=== PATIENT | female | born 1990 | race Hispanic/Latino ===

== ENCOUNTER 2025-07-22 16:48 | Emergency (ER) | payer BC ==
[~2025-07-22] VITALS: Ht 165.1 cm; Wt 109.5 kg
[~2025-07-22 16:48] MED LIST: ALBUTEROL2.5 MG/3 M INH; BENZONATATE100 MG PO; COMPRESSOR NEB1 EACH; IBUPROFEN800 MG PO; NAPROSYN500 MG PO; NORCO 5-325 TA1 EACH PO; PROAIR DIGIHAL90 MCG INH; ZITHROMAX250 MG PO; ZOFRAN ODT4 MG SL
[2025-07-22 17:38] VITALS: PULSE 69; RESP 16; TEMP 98.4; O2SAT 100
== END 2025-07-22 17:38 | disposition home or self-care (01) ==
LOC: FSED 17:11
DX: R50.9 Fever, unspecified (principal); J06.9 Acute upper respiratory infection, unspecified; M32.9 Systemic lupus erythematosus, unspecified; M06.9 Rheumatoid arthritis, unspecified; Z11.52 Encounter for screening for COVID-19; Z98.84 Bariatric surgery status
CPT/HCPCS: 0223U; 87400; 99283